=== PATIENT | male | born 1985 | race Caucasian/White ===

== ENCOUNTER 2016-08-10 19:42 | Emergency (ER) | payer SELFPAY ==
--- NOTE | 2016-08-10 22:14 | ED Physician Chart ---
Chief Complaint/HPI - Patient Information Date Seen:: 08/10/16 Time Seen:: 22:09 Chief Complaint:: sunburn History of Present Illness:: This patient was in the sun for prolonged time on Monday while making tie-dyed T -shirts. Apparently his upper shoulders and neck area were exposed during this time. She suffers from a severe sunburn which was developed at that point. Patient was very concerned earlier today when he noticed large blisters were developing and rupturing with yellow material exuding from them at times. He has not had a fever. Patient states he suffers from some type of an unnamed autoimmune disease. This causes him to have hive outbreaks from time to time. These have been treated successfully with steroids in the past. His doctors have been quick to put him on antibiotics in the past when he is ill and he has never had a rash develop from the antibiotic use. No chest pain. No shortness of breath. No nausea or vomiting. No headache. No stiff neck. No rash except in the neck and shoulders area that was exposed. Patient has not been using any lotion or moisturizer as he fears that some lotions in the past have caused an allergic reaction. He says the pain is tolerable. He does not want pain medications. He says he deals with chronic arthritis which is worse. Allergies:: Allergies Allergy/AdvReac Type Severity Reaction Status Date / Time latex Allergy Verified 08/10/16 21:44 Vitals:: Vital Signs - 8 hr 08/10/16 08/10/16 20:30 22:00 Temp 98.5 F 98.3 F HR 76 71 RR 18 17 BP 142/98 138/74 O2 Sat % 100 100 Historian:: Patient Review of Systems - Review of Systems General/Constitutional: No fever, No chills, No weight loss, No weakness, No diaphoresis, No edema, No loss of appetite Skin: No skin lesions, Rash, No bruising Head: No headache, No light-headedness Eyes: No loss of vision, No pain, No diplopia ENT: No earache, No nasal drainage, No sore throat, No tinnitus Neck: No neck pain, No swelling, No thyromegaly, No stiffness, No mass noted Cardio Vascular: No chest pain, No palpitations, No PND, No orthopnea, No edema Pulmonary: No SOB, No cough, No sputum, No wheezing GI: No nausea, No vomiting, No diarrhea, No pain, No melena, No hematochezia, No constipation, No hematemesis G/U: No dysuria, No frequency, No hematuria Musculoskeletal: No bone or joint pain, No back pain, No muscle pain Endocrine: No polyuria, No polydipsia Psychiatric: No prior psych history, No depression, No anxiety, No suicidal ideation Hematopoietic: No bruising, No lymphadenopathy Allergic/Immuno: No urticaria, No angioedema Neurological: No syncope, No focal symptoms, No weakness, No paresthesia, No headache, No seizure, No dizziness, No confusion, No vertigo Past Medical History - Past Medical History Past Medical History: Arthritis, Other (autoimmune dz (familial angioedema?)) Social History: Smoker, Alcohol Medication: Reviewed Family Medical History - Family Member Mother History Unknown: Yes Physical Exam - Physical Examination General/Constitutional: Awake, Well-developed, well-nourished, Alert, No distress, GCS 15, Non-toxic appearing, Ambulatory Head: Atraumatic Eyes: Lids, conjuctiva normal, PERRL, EOMI Skin: Nl inspection, No skin lesions, No ecchymosis, Well hydrated, No lymphadenopathy Other Skin comments:: red sunburn rash over shoulders and neck w blisters ...many ruptured and exuded serous fluid. ok rom neck. supple. ...no spreading red streaks. ENMT: External ears, nose nl, Nasal exam nl, Lips, teeth, gums nl Neck: Nontender, Full ROM w/o pain, No JVD, No nuchal rigidity, No bruit, No mass, No stridor Respiratory: Nl effort/Exclusion, Clear to Auscultation, No Wheeze/Rhonchi/Rales Cardio Vascular: RRR, No murmur, gallop, rubs, NL S1 S2 GI: No tenderness/rebounding/guarding, No organomegaly, No hernia, Normal BS's, Nondistended, No mass/bruits, No McBurney tenderness : No CVA tenderness Extremities: No tenderness or effusion, Full ROM, normal strength in all extremities, No edema, Normal digits & nails Neuro/Psych: Alert/oriented, DTR's symmetric, Normal sensory exam, Normal motor strength, Judgement/insight normal, Mood normal, Normal gait, No focal deficits Misc: normal gait, Normal back, No paraspinal tenderness ED Septic Shock - . Is Septic Shock (SBP<90, OR Lactate>4 mmol\L) present?: No - <6hrs of presentation: Vital Signs: Vital Signs - 8 hr 08/10/16 08/10/16 20:30 22:00 Temp 98.5 F 98.3 F HR 76 71 RR 18 17 BP 142/98 138/74 O2 Sat % 100 100 Reassessment (Disposition) - Reassessment Reassessment Condition:: Improved - Diagnosis Diagnosis:: 1 severe sunburn over neck and shoulders (2nd degree burn) 2 autoimmune disorder hx - Aftercare/Follow up Instructions Aftercare/Follow-Up Instructions:: Counseled pt regarding lab results/diagnosis & need follow up Medication Prescribed:: rx bacitracin ointment. medol pk. keflex(given as precaution although does not appear infection at this time) - Patient Disposition Discharge/Transfer:: Home Condition at Disposition:: Improved ED Discharge Plan - Patient Disposition Instructions: Sunburn, [id number]
== END 2016-08-10 22:05 | disposition home or self-care (01) ==
LOC: ER 19:42
DX: L55.1 Sunburn of second degree (principal); F17.200 Nicotine dependence, unspecified, uncomplicated; Z91.040 Latex allergy status
CPT/HCPCS: Z7502